=== PATIENT | male | born 1960 | race Caucasian/White ===

== ENCOUNTER 2017-12-26 12:07 | Emergency (ER) | payer OTHER ==
[~2017-12-26] VITALS: Ht 185.4 cm; Wt 106.8 kg
[~2017-12-26 12:07] MED LIST: ATORVASTATIN 20 MG T; CLONAZEPAM0.5 MG PO; ESCITALOPRAM OX10 MG PO; LEVAQUIN750 MG PO; LISINOPRIL10 MG PO; TOPAMAX25 MG PO; TRAMADOL HCL50 MG PO
[2017-12-26] MEDS ORDERED: NAPROSYN500 MG PO (16:17)
[2017-12-26] MEDS ORDERED: FLEXERIL10 MG PO (16:17)
[2017-12-26 16:58] VITALS: BP 130/89
== END 2017-12-26 16:30 | disposition home or self-care (01) ==
LOC: EME 12:07
DX: S83.92XA Sprain of unspecified site of left knee, initial encounter (principal); S73.102A Unspecified sprain of left hip, initial encounter; S50.01XA Contusion of right elbow, initial encounter; S20.211A Contusion of right front wall of thorax, initial encounter; W10.9XXA Fall (on) (from) unspecified stairs and steps, initial encounter; I10 Essential (primary) hypertension; F41.9 Anxiety disorder, unspecified; F32.9 Major depressive disorder, single episode, unspecified; Z87.891 Personal history of nicotine dependence; Z91.040 Latex allergy status
CPT/HCPCS: 71101; 73080; 73502; 73564; 99281; 99285